=== PATIENT | female | born 1995 | race African-American/Black ===

== ENCOUNTER 2024-11-02 23:53 | Emergency (ER) | payer MEDICAID, OTHER ==
[~2024-11-02] VITALS: Ht 175.3 cm; Wt 90.7 kg
--- NOTE | 2024-11-03 00:14 | ED.PDOC ---
Psychiatric HPI Comments 29-year-old female that came to the ER via EMS for suicidal ideations. Patient has been drinking alcohol heavily today, when caught herself with a kitchen knife at her left wrist. Bleeding wrapped and controlled at this time. Patient denies being suicidal, states she simply had a lapse in judgment. Patient juli es any prior suicide attempts. Denies being homicidal. Denies any hallucinations Chief Complaint: Suicidal Time Seen by MD: 00:12 Reviewed Notes: Nurses Notes Information Source: Patient Mode of Arrival: EMS Severity: Unable to Care for Self, Unable to Control Self Severity of Pain: Moderate Severity of Mental Status: Moderate Severity of Symptoms: Moderate Timing: Minutes Duration: Since onset Presents with: Unclear Thinking, Suicidal Ideation Attempt: Laceration (left wrist) Circumstance: Medical Clearance Current substance abuse: ETOH History of: Alcoholism Associated signs and symptoms: Anxiety, ETOH, Injury Past Medical History PAST MEDICAL HISTORY: Denies Surgical History: Denies all surgeries YARD OPERATOR History: Denies all YARD OPERATOR Hx Family History Family History: Reviewed,noncontributory to illness Social History Smoker: Non-Smoker Alcohol: Occasionally Drugs: Denies Drug Use Lives In: Home Constitutional: denies: chills, diaphoresis, fatigue, fever, malaise, sweats, weakness, others EENTM: denies: blurred vision, double vision, ear bleeding, ear discharge, ear drainage, ear pain, ear ringing, eye pain, eye redness, hearing loss, mouth pain, mouth swelling, nasal discharge, nose bleeding, nose congestion, nose pain, photophobia, tearing, throat pain, throat swelling, voice changes, others Respiratory: denies: cough, hemoptysis, orthopnea, SOB at rest, shortness of breath, SOB with excertion, stridor, wheezing, others Cardiovascular: denies: chest pain, dizzy spells, diaphoresis, Dyspnea on exertion, edema, irregular heart beat, left arm pain, lightheadedness, palpitations, PND, syncope, others Gastrointestinal: denies: abdomen distended, abdominal pain, blood streaked bowels, constipated, diarrhea, dysphagia, difficulty swallowing, hematemesis, melena, nausea, poor appetite, poor fluid intake, rectal bleeding, rectal pain, vomiting, others Genitourinary: denies: abnormal vagina bleeding, burning, dyspareunia, dysuria, flank pain, frequency, hematuria, incontinence, pain, , vagina discharge, urgency, others Neurological: denies: dizziness, fainting, headache, left sided numbness, left sided weakness, numbness, paresthesia, pre-existing deficit, right sided nu mbness, right sided weakness, seizure, speech problems, tingling, tremors, weakness, others Integumetry: reports: laceration (Left wrist); denies: bruises, change in color, change in hair/nails, dryness, lesions, lumps, rash, wounds, others Allergic/Immunocompromised: denies: Difficulty Healing, Frequent Infections, H jamal, Itching, others Hematologic/Lymphatic: denies: anemia, blood clots, easy bleeding, easy bruising, swollen glands, others Endocrine: denies: excessive hunger, excessive sweating, excessive thirst, excessive urination, flushing, intolerance to cold, intolerance to heat, unexplained weight gain, unexplained weight loss, others Psychiatric: reports: others (Intoxicated with alcohol); denies: anxiety, bipolar disorder, depression, hopeless, panic disorder, schizophrenia, sleepless, suicidal Physical Exam General Appearance: No Apparent Distress, Normal HEENT: Normal ENT Inspection, Pharynx Normal, TMs Normal Neck: Full Range of Motion, Non-Tender, Normal, Normal Inspection Respiratory: Chest Non-Tender, Lungs Clear, No Accessory Muscle Use, No Respiratory Distress, Normal Breath Sounds Cardiovascular: No Edema, No JVD, No Murmur, No Gallop, Normal Peripheral Pulses, Regular Rate/Rhythm Breast Exam: Deferred Gastrointestinal: No Organomegaly, Non Tender, No Pulsatile Mass, Normal Bowel Sounds, Soft Genitalia: Deferred Pelvic: Deferred Rectal: Deferred Extremities: No calf tenderness, Normal capillary refill, Normal inspection, Normal range of motion, Non-tender, No pedal edema Musculoskeletal : Apperance: Normal Neurologic: Alert, installation drafter II-XII nml as Tested, No Motor Deficits, Normal Affect, Normal Mood, No Sensory Deficits Cerebellar Function: Normal Reflexes: Normal Skin: Dry, Normal Color, Warm Lymphatic: No Adenopathy Was a procedure done? Was a procedure done?: Yes Sedation Sedation?: No Laceration Repair : Location 4 cm left wrist, closed wtih 10 running locked sutures with sterile technique Length 4cm Anesthetic: Lidocaine Laceration Repair Prep: Saline Laceration Repair Wound Comple: epidermis/dermis repair Laceration Repair: Skin, Nylon Informed consent obtained: Yes Risks, benefits, and alternati: Yes Psych Differential Dx Suicidal Differential Dx: Alcohol Abuse, Anxiety, Depression, Laceration X-Ray, Labs, Meds, VS Vital Signs Date Time Temp Pulse Resp B/P (MAP) Pulse Ox O2 Delivery O2 Flow Rate FiO2 11/03/24 04:40 96 Room Air* 0 21 11/03/24 04:40 98.0 84 14 137/87 (104) 96 98.0 11/02/24 23:57 98.2 125 18 146/97 (113) 98 98.2 Lab Test 11/03/24 00:33 Range/Units White Blood Count 6.1 4.4-10.8 10^3/uL Red Blood Count 4.16 4.0-5.20 10^6/uL Hemoglobin 12.5 12.2-16.2 g/dL Hematocrit 37.9 36.0-46.0 % Mean Corpuscular Volume 91.0 80.0-100.0 fL Mean Corpuscular Hemoglobin 30.1 28.0-32.0 pg Mean Corpuscular Hemoglobin Concent 33.1 32.0-36.0 g/dL Red Cell Distribution Width 14.7 H 11.8-14.3 % Platelet Count 256 140-450 10^3/uL Mean Platelet Volume 9.2 6.9-10.8 fL Neutrophils (%) (Auto) 38.2 37.0-80.0 % Lymphocytes (%) (Auto) 53.9 H 10.0-50.0 % Monocytes (%) (Auto) 5.6 0.0-12.0 % Eosinophils (%) (Auto) 1.2 0.0-7.0 % Basophils (%) (Auto) 1.1 0.0-2.0 % Neutrophils # (Auto) 2.3 1.6-8.6 10 ^3/uL Lymphocytes # (Auto) 3.3 0.4-5.4 10 ^3/uL Monocytes # (Auto) 0.3 0-1.3 10 ^3/uL Eosinophils # (Auto) 0.1 0-0.8 10 ^3/uL Basophils # (Auto) 0.1 0-0.2 10 ^3/uL Nucleated Red Blood Cells 0.2 % Sodium Level 145 136-145 mmol/L Potassium Level 3.6 3.5-5.1 mmol/L Chloride Level 109 H 98-107 mmol/L Carbon Dioxide Level 23 20-31 mmol/L Anion Gap 13 5-15 Blood Urea Nitrogen < 5 L 9-23 mg/dL Creatinine 0.81 0.550-1.02 mg/dL Glomerular Filtration Rate Calc 101 >90 mL/min BUN/Creatinine Ratio 6.2 L 10.0-20.0 Serum Glucose 122 H 74-106 mg/dL Calcium Level 9.5 8.7-10.4 mg/dL Total Bilirubin 0.3 0.2-1.0 mg/dL Aspartate Amino Transferase (AST) 40 13-40 U/L Alanine Aminotransferase (ALT) 39 7-40 U/L Alkaline Phosphatase 76 46-116 U/L Total Protein 7.3 5.7-8.2 g/dL Albumin 4.4 3.2-4.8 g/dL Salicylates Level < 3.0 -30 mg/dL Acetaminophen Level < 2.0 L 10.0-20.0 UG/ML Plasma/Serum Blood Alcohol 340.6 H <10 mg/dL Current Medications Medications (Trade) Dose Ordered Sig/Nick Route Start Time Stop Time Status Last Admin Nicotine (Nicoderm 7MG/ 24HR) 1 patch ONCE ONCE TD 11/03/24 05:30 11/03/24 05:31 DC 11/03/24 05:26 Time of 1ST Reevaluation: 00:07 Reevaluation 1ST: Unchanged Consultation: Psychiatry Patient Education/Counseling: Diagnosis, Treatment Family Education/Counseling: No Family Present Departure 1 Departure Time of Disposition: 02:00 Impression: Primary Impression: Alcohol intoxication Additional Impression: Laceration of left wrist Disposition: 01 HOME / SELF CARE / HOMELESS Condition: Stable Discharged With: Self Critical Care Note Critical Care Time?: No Stability Stability form required: No Heart Score Heart Score: Heart Score Response (Comments) Value History N/A 0 EKG N/A 0 Age N/A 0 Risk Factors N/A 0 Troponin N/A 0 Total 0 I personally scribed for BRIAN MANCILLA MD ([email or web address]) on 11/03/24 at 00:14. Electronically submitted by Riley Davis ([email or web address]). BRIAN MANCILLA MD Nov 03, 2024 00:14
[2024-11-03 00:52] LABS: Basophils # (auto) 0.1 10 ^3/uL (0-0.2); Basophils % (auto) 1.1 % (0.0-2.0); Eosinophils # (auto) 0.1 10 ^3/uL (0-0.8); Eosinophils % (auto) 1.2 % (0.0-7.0); Hematocrit 37.9 % (36.0-46.0); Hemoglobin 12.5 g/dL (12.2-16.2); Lymphocytes # (auto) 3.3 10 ^3/uL (0.4-5.4); Lymphocytes % (auto) 53.9 % (10.0-50.0); Mean Corpuscular Hemoglobin 30.1 pg (28.0-32.0); Mean Corpuscular Hgb Conc. 33.1 g/dL (32.0-36.0); Monocytes # (auto) 0.3 10 ^3/uL (0-1.3); Monocytes % (auto) 5.6 % (0.0-12.0); Neutrophils # (auto) 2.3 10 ^3/uL (1.6-8.6); Neutrophils % (auto) 38.2 % (37.0-80.0); Nucleated Red Blood Cells % 0.2 %; Platelet Count (auto) 256 10^3/uL (140-450); Red Blood Cells 4.16 10^6/uL (4.0-5.20); Red Cell Distribution Width 14.7 % (11.8-14.3); White Blood Cell 6.1 10^3/uL (4.4-10.8)
[2024-11-03 01:08] LABS: Acetaminophen < 2.0 UG/ML (10.0-20.0); Salicylate < 3.0 mg/dL (-30)
[2024-11-03 01:18] LABS: Alanine Aminotransferase 39 U/L (7-40); Albumin 4.4 g/dL (3.2-4.8); Alkaline Phosphatase 76 U/L (46-116); Anion Gap 13 (5-15); Aspartate Aminotransferase 40 U/L (13-40); Bilirubin, Total 0.3 mg/dL (0.2-1.0); Calcium 9.5 mg/dL (8.7-10.4); Carbon Dioxide 23 mmol/L (20-31); Potassium 3.6 mmol/L (3.5-5.1); Sodium 145 mmol/L (136-145); Total Protein 7.3 g/dL (5.7-8.2)
[2024-11-03 01:19] LABS: BUN/Creatinine Ratio 6.2 (10.0-20.0); Blood Urea Nitrogen < 5 mg/dL (9-23); Chloride 109 mmol/L (98-107); Glucose 122 mg/dL (74-106)
[2024-11-03 01:35] LABS: Blood Alcohol 340.6 mg/dL (<10)
[2024-11-03 04:40] VITALS: O2SAT 96
[2024-11-03] MEDS: LIDOCAINE 1% HCL (LOCAL ANESTH.) INJ 20ML MDV ID ONE (05:00)
[2024-11-03] MEDS: NICOTINE 7MG/24HR TOPICAL PATCH TD ONE (05:26)
--- NOTE | 2024-11-03 13:32 | DVHINCON2 ---
Date of Service if different f: Nov 03, 2024 Consultation ([facility]) Consulting Physician: LITO LIMON MD Progress: Better Labs Laboratory Tests Test 11/03/24 00:33 White Blood Count 6.1 10^3/uL (4.4-10.8) Red Blood Count 4.16 10^6/uL (4.0-5.20) Hemoglobin 12.5 g/dL (12.2-16.2) Hematocrit 37.9 % (36.0-46.0) Mean Corpuscular Volume 91.0 fL (80.0-100.0) Mean Corpuscular Hemoglobin 30.1 pg (28.0-32.0) Mean Corpuscular Hemoglobin Concent 33.1 g/dL (32.0-36.0) Red Cell Distribution Width 14.7 % (11.8-14.3) Platelet Count 256 10^3/uL (140-450) Mean Platelet Volume 9.2 fL (6.9-10.8) Neutrophils (%) (Auto) 38.2 % (37.0-80.0) Lymphocytes (%) (Auto) 53.9 % (10.0-50.0) Monocytes (%) (Auto) 5.6 % (0.0-12.0) Eosinophils (%) (Auto) 1.2 % (0.0-7.0) Basophils (%) (Auto) 1.1 % (0.0-2.0) Neutrophils # (Auto) 2.3 10 ^3/uL (1.6-8.6) Lymphocytes # (Auto) 3.3 10 ^3/uL (0.4-5.4) Monocytes # (Auto) 0.3 10 ^3/uL (0-1.3) Eosinophils # (Auto) 0.1 10 ^3/uL (0-0.8) Basophils # (Auto) 0.1 10 ^3/uL (0-0.2) Nucleated Red Blood Cells 0.2 % Sodium Level 145 mmol/L (136-145) Potassium Level 3.6 mmol/L (3.5-5.1) Chloride Level 109 mmol/L (98-107) Carbon Dioxide Level 23 mmol/L (20-31) Anion Gap 13 (5-15) Blood Urea Nitrogen < 5 mg/dL (9-23) Creatinine 0.81 mg/dL (0.550-1.02) Glomerular Filtration Rate Calc 101 mL/min (>90) BUN/Creatinine Ratio 6.2 (10.0-20.0) Serum Glucose 122 mg/dL (74-106) Calcium Level 9.5 mg/dL (8.7-10.4) Total Bilirubin 0.3 mg/dL (0.2-1.0) Aspartate Amino Transf (AST/SGOT) 40 U/L (13-40) Alanine Aminotransferase (ALT/SGPT) 39 U/L (7-40) Alkaline Phosphatase 76 U/L (46-116) Total Protein 7.3 g/dL (5.7-8.2) Albumin 4.4 g/dL (3.2-4.8) Salicylates Level < 3.0 mg/dL (-30) Acetaminophen Level < 2.0 UG/ML (10.0-20.0) Plasma/Serum Blood Alcohol 340.6 mg/dL (<10) Appetite: Good Side effects of medications: No Appearance: Stated age Psychomotor activity: WNL Behavioral: Cooperative Eye contact: Appropriate Speech: WNL Affect: Appropriate Mood: Euthymic Thought processes: Linear/Goal-directed Thought content: WNL Suicidal ideations: Absent Homicidal ideations: Absent Orientation: Person, Place, Time, Situation Memory intact: Recent Intellect: Average Abstractability: WNL Concentration: Adequate Attention: Adequate Judgement: WNL Insight: Limited Vitals Vital Signs Date Time Temp Pulse Resp B/P (MAP) Pulse Ox O2 Delivery O2 Flow Rate FiO2 11/03/24 09:25 98.4 86 16 130/84 (99) 96 98.4 11/03/24 07:16 Room Air* 0 21 Treatment plan discussed: With staff, Family Medication adjusted: No Labs ordered: No Psychotherapy provided: Yes Type: Voluntary Diagnosis: 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 Plan : Based on the psych eval, the pt appears to have experienced an alcohol induced depressive episode with self-harm behavior d/t reduced inhibition and compromised decision making. Pt is a binge pattern drinker but this was admittedly the most she has had to drink. Pt also smokes 10 cigarettes a day and is open to trying chantix to stop smoking. Pt appears to be at baseline level of functioning and denies any depression, anxiety, symptoms of psychosis or other mood disorder when not inebriated. Pt is interested in stopping her alcohol use and exploring OP rehab and connecting with AA. Currently, pt appears to be a low risk of harm to self or others and pt is not psychotic or gravely disabled. History of Present Illness Reason for Consult : Suicidal thoughts/attempt/self-harm. HPI : Pt admitted to the ED BIB EMS yesterday around 2300. Pt had self-harmed on left forearm with knife. Pt had been drinking heavily and started to feel suicidal. Pt called 911 after self-injury episode. This morning, the pt says that she no l onger feel suicidal and feels safe returning home. She admits that last night was a lapse in judgment. Pt's mother Linda Porter [phone] was called at 1:06 PM & 1:16 PM today and a VM was left. No collateral info could be retrieved. Pt says that 3 beers and 4 shots of hard liquor yesterday. Pt denies feeling depressed at baseline. Pt feels this was out of character for her to self-harm like this and to be so profoundly depressed when drinking alcohol. This is the most she has ever had to drink in one sitting. Pt denies any recent losses of relationships or job. Pt denies SI, HI or AVH, denies past SA or self-harm. Pt feels safe at home. Denies any hx of abuse or trauma. Past Psychiatric History : Denies. Past Medical History : Denies. Social History : Single, lives with sister, but staying with mother these days. Currently unemployed, trying to get a job. Denies legal issues. Assessment/Diagnosis/Plan Reviewed: Care Plan, Labs, Medications LITO LIMON MD Nov 03, 2024 13:32
[2024-11-03 13:49] VITALS: BP 138/88; PULSE 80; RESP 14; TEMP 98.1; O2SAT 98
[2024-11-03] MEDS ORDERED: VARE1TAB12 PO (13:49)
--- NOTE | 2024-11-03 13:50 | ED.PDOC ---
Departure 1 Departure Time of Disposition: 13:46 (Patient was medically cleared. Patient is also cleared by Psychiatry. We will discharge patient home with outpatient follow up) Impression: Primary Impression: Alcohol intoxication Qualified Codes: F10.921 - Alcohol use, unspecified with intoxication delirium Additional Impressions: Laceration of left wrist Qualified Codes: S61.512A - Laceration without foreign body of left wrist, initial encounter Tobacco abuse Disposition: HOME / SELF CARE / HOMELESS Condition: Stable Additional Instructions: You were intoxicated. It is important to only drink in moderation. If you need help quitting you can call (HELP). If your symptoms worsen or you have any other concerns then please return to the ER. e-Prescriptions Varenicline Tartrate (Varenicline Starti... 0.5 mg X 11 & 1 mg X 42) 1 Tab Tab 1 TAB PO DAILY for 14 Days, #14 TAB Prov: NYLA BOSTON MD 11/03/24 Discharged With: Self NYLA BOSTON MD Nov 03, 2024 13:50
== END 2024-11-03 14:20 | disposition home or self-care (01) ==
LOC: EDBD 23:53 → ER 23:57
DX: S61.512A Laceration without foreign body of left wrist, initial encounter (principal); F10.129 Alcohol abuse with intoxication, unspecified; R45.851 Suicidal ideations; F17.210 Nicotine dependence, cigarettes, uncomplicated; W26.0XXA Contact with knife, initial encounter; Y93.89 Activity, other specified; Y92.89 Other specified places as the place of occurrence of the external cause; Y99.8 Other external cause status; Y90.8 Blood alcohol level of 240 mg/100 ml or more
CPT/HCPCS: 12002; 36415; 80053; 80320; 80329; 85025; 99283; J2003

== ENCOUNTER 2024-11-13 09:22 | Emergency (ER) | payer MEDICAID ==
[~2024-11-13] VITALS: Ht 165.1 cm; Wt 91.0 kg
[~2024-11-13 09:22] MED LIST: VARE1TAB12 PO
--- NOTE | 2024-11-13 09:54 | ED.PDOC ---
History of Present Illness HPI Comments 29 year old female presents to the ED for the c/c of a Suture removal to the left Forearm. Pt has some redness and swelling noted, and states that she has had the sutures for 11 days. No pain, or any associated factors at this time. Chief Complaint: Suture Removal Time Seen by MD: 09:49 Reviewed Notes: Nurses Notes, Medications, Allergies Allergies: Coded Allergies: NO KNOWN ALLERGIES (Unverified , 11/03/24) Home Meds Active Scripts Jlhofyen-Vyknwhakcw-Fnomufsxe (Gnp Triple Antibiotic) 1 Oin Oin, 1 APPLIC EX DAILY for 7 Days, #5 GRAMS 0 Refills Prov:ONDINA UGALDE LOSS CONTROL CONSULTANT 11/13/24 Sulfamethoxazole-Trimethoprim (Bactrim) 1 Tab Tab, 1 TAB PO BID for 7 Days, #14 TAB 0 Refills Prov:ONDINA UGALDE LOSS CONTROL CONSULTANT 11/13/24 Cephalexin Monohydrate (Cephalexin) 500 Mg Cap, 1 CAP PO QID for 5 Days, #20 CAP 0 Refills Prov:ONDINA UGALDE NP 11/13/24 Varenicline Tartrate (Varenicline Starti... 0.5 mg X 11 & 1 mg X 42) 1 Tab Tab, 1 TAB PO DAILY for 14 Days, #14 TAB Prov:NYLA BOSTON MD 11/03/24 Information Source: Patient, Relative (Mother) Mode of Arrival: Ambulatory Severity: Mild Timing: Days Duration: Since onset, Days Prehospital treatment: None Past Medical History PAST MEDICAL HISTORY: Denies Surgical History: Denies all surgeries PATTERN PUNCHER History: Denies all PATTERN PUNCHER Hx Family History Family History: Reviewed,noncontributory to illness Social History Smoker: Non-Smoker Alcohol: Occasionally Drugs: Denies Drug Use Lives In: Home Constitutional: denies: chills, diaphoresis, fatigue, fever, malaise, sweats, weakness, others EENTM: denies: blurred vision, double vision, ear bleeding, ear discharge, ear drainage, ear pain, ear ringing, eye pain, eye redness, hearing loss, mouth pain, mouth swelling, nasal discharge, nose bleeding, nose congestion, nose pain, photophobia, tearing, throat pain, throat swelling, voice changes, others Respiratory: denies: cough, hemoptysis, orthopnea, SOB at rest, shortness of breath, SOB with excertion, stridor, wheezing, others Cardiovascular: denies: chest pain, dizzy spells, diaphoresis, Dyspnea on exertion, edema, irregular heart beat, left arm pain, lightheadedness, palpitations, PND, syncope, others Gastrointestinal: denies: abdomen distended, abdominal pain, blood streaked bowels, constipated, diarrhea, dysphagia, difficulty swallowing, hematemesis, melena, nausea, poor appetite, poor fluid intake, rectal bleeding, rectal pain, vomiting, others Genitourinary: denies: abnormal vagina bleeding, burning, dyspareunia, dysuria, flank pain, frequency, hematuria, incontinence, pain, , vagina discharge, urgency, others Neurological: denies: dizziness, fainting, headache, left sided numbness, left sided weakness, numbness, paresthesia, pre-existing deficit, right sided numbness, right sided weakness, seizure, speech problems, tingling, tremors, weakness, others Musculoskeletal: denies: back pain, gout, joint pain, joint swelling, muscle pain, muscle stiffness, neck pain, others Integumetry: reports: others (Sutures ); denies: bruises, change in color, change in hair/nails, dryness, laceration, lesions, lumps, rash, wounds Allergic/Immunocompromised: denies: Difficulty Healing, Frequent Infections, Hives, Itching, others Hematologic/Lymphatic: denies: anemia, blood clots, easy bleeding, easy bruising, swollen glands, others Endocrine: denies: excessive hunger, excessive sweating, excessive thirst, excessive urination, flushing, intolerance to cold, intolerance to heat, unexplained weight gain, unexplained weight loss, others Psychiatric: denies: anxiety, bipolar disorder, depression, hopeless, panic disorder, schizophrenia, sleepless, suicidal, others All Other Systems: Reviewed and Negative Physical Exam General Appearance: No Apparent Distress, Normal, Obese HEENT: Normal ENT Inspection, Pharynx Normal, TMs Normal Neck: Full Range of Motion, Non-Tender, Normal Respiratory: Chest Non-Tender, Lungs Clear, No Accessory Muscle Use, No Respiratory Distress, Normal Breath Sounds Cardiovascular: No Edema, No JVD, No Murmur, Normal Peripheral Pulses, Regular Rate/Rhythm Breast Exam: Deferred Gastrointestinal: Non Tender, No Pulsatile Mass, Normal Bowel Sounds, Soft Genitalia: Deferred Pelvic: Deferred Rectal: Deferred Extremities: Normal inspection, Normal range of motion, Non-tender, No pedal edema Musculoskeletal : Location: Left Extremity Location: Forearm (Sutures noted. Mild erythema. Mild yellow dc. ) Apperance: Normal Neurologic: Alert, No Motor Deficits, Normal Mood Cerebellar Function: Normal Reflexes: Normal Skin: Dry, Normal Color, Warm Lymphatic: No Adenopathy Was a procedure done? Was a procedure done?: No Differential Dx Considerations may include: suture removal X-Ray, Labs, Meds, VS Vital Signs Date Time Temp Pulse Resp B/P (MAP) Pulse Ox O2 Delivery O2 Flow Rate FiO2 11/13/24 10:02 98.6 83 20 149/106 (120) 99 98.6 11/13/24 09:39 98.6 83 20 149/106 (120) 99 98.6 X-Ray, Labs, Meds, VS Comment 29 year old female presents to the ED for the c/c of a Suture removal to the left Forearm. Patient arrives alert and oriented, ABC's intact, afebrile, vital signs stable, saturating well in room air Suture Removal Alcohol swab used to clean area thoroughly. Used sterile suture removal kit to remove sutures. Clean, dry, intact. No discharge seen. Education provided to keep area clean and dry. If gets soiled, use soap and water to clean. Empiric tx d/t mild signs of infection. Watch out for further signs and symptoms of infection including fever, chills, yellow or green discharge, increased pain, swelling etc. Additional MDM Review of External, Non-ED records: External records reviewed. Discussion with independent historian (EMS, family) history obtained from the patient/parents (if applicable) at bedside Chronic conditions affecting care: None Social determinants of health affecting care: None Consideration of admission (observation or admission): I considered escalation of care to admission for this patient, however given the reassuring workup, the patient is safe for outpatient management. Time of 1ST Reevaluation: 10:20 Reevaluation 1ST: Unchanged Patient Education/Counseling: Diagnosis, Treatment Family Education/Counseling: Diagnosis, Treatment SEPSIS Sepsis Screen Date sepsis recognized/suspect: Nov 13, 2024 Time Sepsis recognized/suspect: 09 Recent Procedure: No On Antibiotic Therapy: No Respiratory Rate >20: No Heart Rate >90: No Temp<36 C (96.8 F) or >38.3 C: No SBP <90 or MAP <65 mmHG: No New Acute Mental Status Change: No Is the patient on CPAP, BIPAP,: No Orders/Vitals/Labs Vital Signs Date Time Temp Pulse Resp B/P (MAP) Pulse Ox O2 Delivery O2 Flow Rate FiO2 11/13/24 10:02 98.6 83 20 149/106 (120) 99 98.6 11/13/24 09:39 98.6 83 20 149/106 (120) 99 98.6 Departure 1 Departure Time of Disposition: 09:56 Impression: Primary Impression: Visit for suture removal Disposition: 01 HOME / SELF CARE / HOMELESS Condition: Fair e-Prescriptions Nvupppby-Jjrsszrilj-Xazjiwrgl (Gnp Triple Antibiotic) 1 Oin Oin 1 APPLIC EX DAILY for 7 Days, #5 GRAMS 0 Refills Prov: ONDINA UGALDE LOSS CONTROL CONSULTANT 11/13/24 Sulfamethoxazole-Trimethoprim (Bactrim) 1 Tab Tab 1 TAB PO BID for 7 Days, #14 TAB 0 Refills Prov: ONDINA UGALDE NP 11/13/24 Cephalexin Monohydrate (Cephalexin) 500 Mg Cap 1 CAP PO QID for 5 Days, #20 CAP 0 Refills Prov: ONDINA UGALDE NP 11/13/24 Critical Care Note Critical Care Time?: No Stability Stability form required: No Heart Score Heart Score: Heart Score Response (Comments) Value History N/A 0 EKG N/A 0 Age N/A 0 Risk Factors N/A 0 Troponin N/A 0 Total 0 I personally scribed for ONDINA UGALDE NP ([email or web address]) on 11/13/24 at 09:54. Electronically submitted by Darion Landa ([email or web address]). ONDINA UGALDE NP Nov 13, 2024 09:54
[2024-11-13] MEDS ORDERED: CEPH500C PO (09:58)
[2024-11-13] MEDS ORDERED: NEOM1OIN EX (09:58)
[2024-11-13] MEDS ORDERED: SULF400T11 PO (09:58)
[2024-11-13 10:02] VITALS: BP 149/106; PULSE 83; RESP 20; TEMP 98.6; O2SAT 99
== END 2024-11-13 10:09 | disposition home or self-care (01) ==
LOC: ER 09:22
DX: S51.812D Laceration without foreign body of left forearm, subsequent encounter (principal); Z48.02 Encounter for removal of sutures; X58.XXXD Exposure to other specified factors, subsequent encounter

== ENCOUNTER 2025-04-05 07:10 | Emergency (ER) | payer MEDICAID ==
[~2025-04-05] VITALS: Ht 165.1 cm; Wt 106.8 kg
[~2025-04-05 07:10] MED LIST changes: +CEPH500C PO; +NEOM1OIN EX; +SULF400T11 PO
--- NOTE | 2025-04-05 07:48 | ED.PDOC ---
GI ASSESSMENT HPI Comments 29 y.o female presents to the ED for a chief complaint of RUQ pain radiating to her back that started 2 days ago. Patient states pain started while drinking around 3 beers. She states pain is sharp in nature, was intermittent but been constant since 0400 today. She took Tylenol for pain control however is no longer reliving pain at this time. Pain is currently an 8/10 on the pain scale. She denies any nausea, vomiting, diarrhea, fever, chills. She admits to occasional alcohol and tobacco use. Patient reports pain is worse when she eats. Chief Complaint: Abdominal Pain Time Seen by MD: 07:43 Reviewed Notes: Nurses Notes, Medications, Allergies Allergies: Coded Allergies: NO KNOWN ALLERGIES (Unverified , 11/03/24) Home Meds Active Scripts Gpopiefs-Lwbmzrvckj-Zkskoiqhg (Gnp Triple Antibiotic) 1 Oin Oin, 1 APPLIC EX DAILY for 7 Days, #5 GRAMS 0 Refills Prov:ONDINA UGALDE NP 11/13/24 Sulfamethoxazole-Trimethoprim (Bactrim) 1 Tab Tab, 1 TAB PO BID for 7 Days, #14 TAB 0 Refills Prov:ONDINA UGALDE [employer] RECORD SUPERVISOR 11/13/24 Cephalexin Monohydrate (Cephalexin) 500 Mg Cap, 1 CAP PO QID for 5 Days, #20 CAP 0 Refills Prov:ONDINA UGALDE NP 11/13/24 Varenicline Tartrate (Varenicline Starti... 0.5 mg X 11 & 1 mg X 42) 1 Tab Tab, 1 TAB PO DAILY for 14 Days, #14 TAB Prov:NYLA BOSTON MD 11/03/24 Information Source: Patient Mode of Arrival: Ambulatory Duration: Since onset Quality: Sharp Vomitus: None Stool: Normal Severity: Moderate Recent: None Recent Hx of: None Pain Location: RUQ Associated sign and symptoms: Abdominal Pain Past Medical History PAST MEDICAL HISTORY: Denies Surgical History: Denies all surgeries HOSPITAL PERSONNEL DIRECTOR History: Denies all HOSPITAL PERSONNEL DIRECTOR Hx Family History Family History: Reviewed,noncontributory to illness Social History Smoker: Non-Smoker Alcohol: Occasionally Drugs: Denies Drug Use Lives In: Home Constitutional: denies: chills, diaphoresis, fatigue, fever, malaise, sweats, weakness, others EENTM: denies: blurred vision, double vision, ear bleeding, ear discharge, ear drainage, ear pain, ear ringing, eye pain, eye redness, hearing loss, mouth pain, mouth swelling, nasal discharge, nose bleeding, nose congestion, nose pain, photophobia, tearing, throat pain, throat swelling, voice changes, others Respiratory: denies: cough, hemoptysis, orthopnea, SOB at rest, shortness of breath, SOB with excertion, stridor, wheezing, others Cardiovascular: denies: chest pain, dizzy spells, diaphoresis, Dyspnea on exertion, edema, irregular heart beat, left arm pain, lightheadedness, palpitations, PND, syncope, others Gastrointestinal: reports: abdominal pain; denies: abdomen distended, blood streaked bowels, constipated, diarrhea, dysphagia, difficulty swallowing, hematemesis, melena, nausea, poor appetite, poor fluid intake, rectal bleeding, rectal pain, vomiting, others Genitourinary: denies: abnormal vagina bleeding, burning, dyspareunia, dysuria, flank pain, frequency, hematuria, incontinence, pain, , vagina discharge, urgency, others Neurological: denies: dizziness, fainting, headache, left sided numbness, left sided weakness, numbness, paresthesia, pre-existing deficit, right sided numbness, right sided weakness, seizure, speech problems, tingling, tremors, weakness, others Musculoskeletal: reports: back pain; denies: gout, joint pain, joint swelling, muscle pain, muscle stiffness, neck pain, others Integumetry: denies: bruises, change in color, change in hair/nails, dryness, laceration, lesions, lumps, rash, wounds, others Allergic/Immunocompromised: denies: Difficulty Healing, Frequent Infections, Hives, Itching, others Hematologic/Lymphatic: denies: anemia, blood clots, easy bleeding, easy bruising, swollen glands, others Psychiatric: denies: anxiety, bipolar disorder, depression, hopeless, panic disorder, schizophrenia, sleepless, suicidal, others All Other Systems: Reviewed and Negative Physical Exam General Appearance: Mild Distress HEENT: Normal ENT Inspection, Pharynx Normal, TMs Normal Neck: Full Range of Motion, Non-Tender, Normal, Normal Inspection Respiratory: Chest Non-Tender, Lungs Clear, No Accessory Muscle Use, No Respiratory Distress, Normal Breath Sounds Cardiovascular: No Edema, No JVD, No Murmur, No Gallop, Normal Peripheral Pulses, Regular Rate/Rhythm Breast Exam: Deferred Gastrointestinal: Other (Mild abdominal tenderness to palpation of the right upper quadrant. No CVA tenderness) Genitalia: Deferred Pelvic: Deferred Rectal: Deferred Extremities: No calf tenderness, Normal capillary refill, Normal inspection, Normal range of motion, Non-tender, No pedal edema Musculoskeletal : Apperance: Normal Neurologic: Alert, service delivery manager II-XII nml as Tested, No Motor Deficits, Normal Affect, Normal Mood, No Sensory Deficits Cerebellar Function: Normal Reflexes: Normal Skin: Dry, Normal Color, Warm Lymphatic: No Adenopathy Was a procedure done? Was a procedure done?: No GI differential Dx Differential Diagnosis: Cholangitis, Cholecystitis, Gastritis/PUD, Hepatitis, , Kidney Stone Other Differential Diagnosis Pancreatitis X-Ray, Labs, Meds, VS Vital Signs Date Time Temp Pulse Resp B/P (MAP) Pulse Ox O2 Delivery O2 Flow Rate FiO2 04/05/25 10:20 97.9 78 18 128/97 (107) 97 97.9 04/05/25 07:13 97.2 83 14 137/102 99 97.2 Lab Test 04/05/25 07:57 04/05/25 07:48 Range/Units White Blood Count 8.8 4.4-10.8 10^3/uL Red Blood Count 4.60 4.0-5.20 10^6/uL Hemoglobin 13.5 12.2-16.2 g/dL Hematocrit 40.9 36.0-46.0 % Mean Corpuscular Volume 88.8 80.0-100.0 fL Mean Corpuscular Hemoglobin 29.3 28.0-32.0 pg Mean Corpuscular Hemoglobin Concent 32.9 32.0-36.0 g/dL Red Cell Distribution Width 13.4 11.8-14.3 % Platelet Count 266 140-450 10^3/uL Mean Platelet Volume 9.0 6.9-10.8 fL Neutrophils (%) (Auto) 61.8 37.0-80.0 % Lymphocytes (%) (Auto) 30.7 10.0-50.0 % Monocytes (%) (Auto) 5.2 0.0-12.0 % Eosinophils (%) (Auto) 1.7 0.0-7.0 % Basophils (%) (Auto) 0.6 0.0-2.0 % Neutrophils # (Auto) 5.4 1.6-8.6 10 ^3/uL Lymphocytes # (Auto) 2.7 0.4-5.4 10 ^3/uL Monocytes # (Auto) 0.5 0-1.3 10 ^3/uL Eosinophils # (Auto) 0.1 0-0.8 10 ^3/uL Basophils # (Auto) 0.1 0-0.2 10 ^3/uL Nucleated Red Blood Cells 0.0 % Sodium Level 140 136-145 mmol/L Potassium Level 4.3 3.5-5.1 mmol/L Chloride Level 103 98-107 mmol/L Carbon Dioxide Level 27 20-31 mmol/L Anion Gap 10 5-15 Blood Urea Nitrogen 8 L 9-23 mg/dL Creatinine 0.90 0.550-1.02 mg/dL Glomerular Filtration Rate Calc 89 >90 mL/min BUN/Creatinine Ratio 8.9 L 10.0-20.0 Serum Glucose 98 74-106 mg/dL Calcium Level 9.6 8.7-10.4 mg/dL Total Bilirubin 1.0 0.2-1.0 mg/dL Aspartate Amino Transferase (AST) 38 13-40 U/L Alanine Aminotransferase (ALT) 35 7-40 U/L Alkaline Phosphatase 66 46-116 U/L Total Protein 7.8 5.7-8.2 g/dL Albumin 4.6 3.2-4.8 g/dL Lipase 51 12-53 U/L Urine Color Yellow Yellow Urine Clarity Turbid H Clear Urine pH 5.5 5.0-9.0 Urine Specific [place] 1.036 H 1.001-1.035 Urine Protein Trace H Negative Urine Ketones Negative Negative Urine Blood Negative Negative /uL Urine Nitrite Negative Negative Urine Bilirubin Negative Negative Urine Urobilinogen 2 H Negative mg/dL Urine Leukocyte Esterase 1+ Negative /uL Urine RBC 5 0 - 4 /hpf Urine Microscopic WBC 3 0-5 /HPF Urine Squamous Epithelial Cells Few <5 /hpf Urine Bacteria None seen None Seen /hpf Urine Mucus Few None Seen Urine Glucose Normal Normal mg/dL Urine Test Negative Negative Current Medications Medications (Trade) Dose Ordered Sig/Nick Route Start Time Stop Time Status Last Admin Acetaminophen/ Hydrocodone Bitart ([place] 5/325MG Tab) 1 tab ONCE ONCE PO 04/05/25 08:00 04/05/25 08:01 DC 04/05/25 07:54 Ondansetron HCl (Zofran Po) 4 mg ONCE ONCE PO 04/05/25 08:00 04/05/25 08:01 DC 04/05/25 07:54 [place] [id number] Ph: [phone] DIAGNOSTIC IMAGING Diagnostic Imaging Report : [id number] Signed PATIENT: EMILIANO NEWTON ACCT: [id number] UNIT: [id number] : 1995 LOC: ER ROOM / BED: / AGE / SEX: 29 / F ADM STATUS: REG ER SERVICE 0 ORDERING PHYSICIAN: WILLIAM VELEZ MD PROCEDURE(s): GBUS - GALLBLADDER REASON: Rule out cholecystitis ORDER NUMBER(s): [id number], ACCESSION NUMBER(s): [id number] Ultrasound gallbladder INDICATION: Rule out cholecystitis Technique: 2-D real-time ultrasound was performed with axial and sagittal images submitted for evaluation. FINDINGS: Liver is borderline in size measuring 18.8 cm and is heterogeneous in echotexture. There is a 2.5 x 2.2 x 2.3 cm well-defined focus of signal hyperintensity adjacent to the gallbladder fossa. There are gallstones present. Gallbladder is contracted. Technologist reports negative sonographic harrington's sign. The right kidney measures 12 cm without mass stone or hydronephrosis IMPRESSION: 1. Cholelithiasis. Gallbladder is contracted. No biliary obstruction. 2. Well-defined echogenic area in the right lobe of the liver measuring 2.5 x 2.2 x 2.3 cm most likely either a hemangioma ATED BY: MORRO POP MD DICTATED DATE/TIME: 04/05/25940 SIGNED BY: MORRO POP MD SIGNED DATE/TIME: 04/05/25940 CC: 29-year-old female presents here with right upper quadrant epigastric abdominal pain. She states the symptoms began while she was drinking. She states intermittently she does drink heavy. On my examination she does have mild tenderness to the right upper quadrant. Considered possible pancreatitis, cholecystitis, gastritis. She does state that the pain worsens with food consumption. At this time I ordered a CBC, CMP, lipase urine and urinalysis. As well as an ultrasound of the gallbladder. I have given her [place] and Zofran for pain control in the ER. Additionally her blood pressure was noted to be high here at 137/102. Ultrasound with evidence of cholelithiasis. No evidence of cholecystitis. CBC CMP and lipase within normal limits. Patient is not . Patient denies dysuria. UA without infection. At this time I have discharging her home. I have given her Toradol in the ED. Advised her to avoid fatty foods. And to use ibuprofen as needed. Discussed that if she begins to have fevers nausea vomiting she needs to return back to the ER for possible infection. Otherwise she can follow up outpatient surgery. She also has a hemangioma on her right liver which I have advised her. I advised her to return back to the ER as needed. Time of 1ST Reevaluation: 08:40 Reevaluation 1ST: Unchanged Time of 2ND Reevaluation: 11:06 Reevaluation 2ND: Improved Patient Education/Counseling: Diagnosis, Treatment, Prognosis Family Education/Counseling: No Family Present SEPSIS Sepsis Screen Date sepsis recognized/suspect: Apr 05, 2025 Time Sepsis recognized/suspect: 715 Recent Procedure: No On Antibiotic Therapy: No Respiratory Rate >20: No Heart Rate >90: No Temp<36 C (96.8 F) or >38.3 C: No SBP <90 or MAP <65 mmHG: No New Acute Mental Status Change: No Is the patient on CPAP, BIPAP,: No Physician Orders Gallbladder (04/05/25 07:51) Vital Signs Date Time Temp Pulse Resp B/P (MAP) Pulse Ox O2 Delivery O2 Flow Rate FiO2 04/05/25 10:20 97.9 78 18 128/97 (107) 97 97.9 04/05/25 07:13 97.2 83 14 137/102 99 97.2 Laboratory Tests Test 04/05/25 07:57 White Blood Count 8.8 10^3/uL (4.4-10.8) Medications Medications Dose Ordered Sig/Nick Route Start Time Stop Time Status Last Admin Dose Admin Acetaminophen/ Hydrocodone Bitart 1 tab ONCE ONCE PO 04/05/25 08:00 04/05/25 08:01 DC 04/05/25 07:54 Ondansetron HCl 4 mg ONCE ONCE PO 04/05/25 08:00 04/05/25 08:01 DC 04/05/25 07:54 Departure 1 Departure Time of Disposition: 11:05 Impression: Primary Impression: Hypertension Qualified Codes: I10 - Essential (primary) hypertension Additional Impression: Cholelithiasis Qualified Codes: K80.80 - Other cholelithiasis without obstruction Disposition: HOME / SELF CARE / HOMELESS Condition: Fair Additional Instructions: Follow up with the primary care physician in 2-3 days. Return to the ER if symptoms worsen or persist. You have stones in her gallbladder today but it is not infected. However if you have persistent pain please return back to the ER. Please follow up with outpatient surgery for gallbladder removal if this becomes bothersome. Avoid fatty foods as that will help with the pain. You can take ibuprofen 200 mg tablets, 3 tablets at a time for pain control every 6 hours as needed for pain. Discharged With: Self Critical Care Note Critical Care Time?: No Stability Stability form required: No Heart Score Heart Score: Heart Score Response (Comments) Value History N/A 0 EKG N/A 0 Age N/A 0 Risk Factors N/A 0 Troponin N/A 0 Total 0 I personally scribed for WILLIAM VELEZ MD ([email or web address]) on 04/05/25 at 07:48. Electronically submitted by Merly Solomon ([employer]). I personally scribed for WILLIAM VELEZ MD ([email or web address]) on 04/05/25 at 09:48. Electronically submitted by Merly Solomon ([employer]). WILLIAM VELEZ MD Apr 05, 2025 07:48
[2025-04-05] MEDS: ONDANSETRON ODT 4 MG TAB PO ONE (07:54)
[2025-04-05] MEDS: HYDROcodone-ACET 5/325MG TAB PO ONE (07:54)
[2025-04-05 08:30] LABS: Hematocrit 40.9 % (36.0-46.0); Hemoglobin 13.5 g/dL (12.2-16.2); Mean Corpuscular Hemoglobin 29.3 pg (28.0-32.0); Mean Corpuscular Volume 88.8 fL (80.0-100.0); Nucleated Red Blood Cells % 0.0 %
[2025-04-05 08:43] LABS: Alanine Aminotransferase 35 U/L (7-40); Albumin 4.6 g/dL (3.2-4.8); Alkaline Phosphatase 66 U/L (46-116); Anion Gap 10 (5-15); BUN/Creatinine Ratio 8.9 (10.0-20.0); Calcium 9.6 mg/dL (8.7-10.4); Carbon Dioxide 27 mmol/L (20-31); Chloride 103 mmol/L (98-107); Glucose 98 mg/dL (74-106); Potassium 4.3 mmol/L (3.5-5.1); Sodium 140 mmol/L (136-145); Total Protein 7.8 g/dL (5.7-8.2)
[2025-04-05 08:44] LABS: Bilirubin, Total 1.0 mg/dL (0.2-1.0)
[2025-04-05 08:49] LABS: Blood Urea Nitrogen 8 mg/dL (9-23)
[2025-04-05 09:01] LABS: Lipase 51 U/L (12-53)
[2025-04-05 09:27] LABS: Urine Protein, UAD TRACE (Negative)
--- NOTE | 2025-04-05 09:43 | DVH ---
Ultrasound gallbladder INDICATION: Rule out cholecystitis Technique: 2-D real-time ultrasound was performed with axial and sagittal images submitted for evaluation. FINDINGS: Liver is borderline in size measuring 18.8 cm and is heterogeneous in echotexture. There is a 2.5 x 2.2 x 2.3 cm well-defined focus of signal hyperintensity adjacent to the gallbladder fossa. There are gallstones present. Gallbladder is contracted. Technologist reports negative sonographic harrington's sign. The right kidney measures 12 cm without mass stone or hydronephrosis IMPRESSION: 1. Cholelithiasis. Gallbladder is contracted. No biliary obstruction. 2. Well-defined echogenic area in the right lobe of the liver measuring 2.5 x 2.2 x 2.3 cm most likely either a hemangioma
[2025-04-05 10:20] VITALS: BP 128/97; TEMP 97.9
[2025-04-05 11:20] VITALS: PULSE 78; RESP 18; O2SAT 97
[2025-04-05] MEDS: KETOROLAC TROMETH 60MG/2ML VIAL IM ONE (11:20)
== END 2025-04-05 11:22 | disposition home or self-care (01) ==
LOC: ER 07:10
DX: K80.20 Calculus of gallbladder without cholecystitis without obstruction (principal); I10 Essential (primary) hypertension; F10.90 Alcohol use, unspecified, uncomplicated; Z79.899 Other long term (current) drug therapy; Y90.9 Presence of alcohol in blood, level not specified
CPT/HCPCS: 36415; 76705; 80053; 81001; 81025; 83690; 85025; 96372; 99285; J1885; Q0162